=== PATIENT | female | born 1950 | race Caucasian/White ===

== ENCOUNTER 2022-06-29 11:22 | Emergency (ER) | payer SELFPAY ==
[2022-06-29] VITALS (13 sets, daily range): BP systolic 128–162; BP diastolic 69–121; PULSE 79–135; RESP 14–26; TEMP 36.1; O2SAT 96–99; BMI 17.6
[2022-06-29 12:25] LABS: Add Manual Diff / Slide Review NO; Basophils Absolute Auto 0 /uL (0-100); Basophils Percent Auto 0.4 % (0-2); Eosinophils Absolute Auto 0 /uL (0-450); Eosinophils Percent Auto 0.3 % (2-4); Hemoglobin 13.9 g/dL (12.0-16.0); Lymphocytes Absolute Auto 1500 /uL (1100-4500); Lymphocytes Percent Auto 17.1 % (25-40); Mean Corpuscular HGB Conc 33.9 % (30-36); Mean Corpuscular Hemoglobin 34.7 PG (26-34); Mean Corpuscular Volume 102.3 fL (80-100); Monocytes Absolute Auto 400 /uL (0-900); Monocytes Percent Auto 4.5 % (3-14); Neutrophils Absolute Auto 6600 /uL (1500-7000); Neutrophils Percent Auto 77.7 % (50-75); Platelet Count 318 X10^3/uL (150-400); Red Blood Cell Count 4.01 X10^6/uL (4.0-5.2); Red Cell Distribution Width 13.3 % (11.6-14.8); White Blood Cell Count 8.5 X10^3/uL (4.5-11.0)
[2022-06-29 12:26] LABS: Prothrombin Time 11.1 SECONDS (10.1-12.7)
[2022-06-29] MEDS: PANTOPRAZOLE 40 MG VIAL 80 MG IV (12:27)
[2022-06-29 12:29] LABS: PTT Partial Thromboplastin Tim 32 SECONDS (26-36)
[2022-06-29 12:30] LABS: Alanine Aminotransferase 52 IU/L (<35); Albumin 4.3 g/dL (3.5-5.0); Alkaline Phosphatase 138 U/L (38-126); Aspartate Aminotransferase 178 IU/L (14-36); BUN Creatinine Ratio 19.4 (6-22); Bilirubin Total 1.3 mg/dL (0.2-1.3); Blood Urea Nitrogen 13 mg/dL (7-17); Calcium 9.6 mg/dL (8.4-10.2); Carbon Dioxide 20 mmol/L (22-32); Chloride 98 mmol/L (98-107); Estimated Glomerular Filt Rate > 60 mL/min (>60); Globulin 4.4 g/dL (1.7-4.1); Glucose 89 mg/dL (80-110); HEMOLYSIS < 15 (0-50); Potassium 4.1 mmol/L (3.4-5.1); Sodium 137 mmol/L (137-145); Total Protein 8.7 g/dL (6.3-8.2)
--- NOTE | 2022-06-29 14:16 | ED_ITS ---
HPI - GI Bleed General Chief complaint: GI Bleed Stated complaint: woke up this morning shitting blood Time Seen by Provider: 06/29/22 12:09 Source: patient Mode of arrival: Ambulatory Limitations: no limitations History of Present Illness HPI Narrative: Patient is a 71-year-old female who states she woke up this morning and had an episode of bright red blood per rectum. She is not had any bowel movement since then. No anticoagulation. Was not tender to go the bathroom. No abdominal pain. Not vomiting. No fevers. No recent travel. No recent antibiotics. No blood in her urine. No problems urinating. Has never had a colonoscopy. Related Data Home Medications Medication Instructions Recorded Confirmed No Known Home Medications 06/29/22 06/29/22 Allergies Allergy/AdvReac Type Severity Reaction Status Date / Time amoxicillin Allergy Intermediate Hives Verified 06/29/22 11:35 bacitracin Allergy Intermediate Hives Verified 06/29/22 11:35 [From Neosporin ([id number])] neomycin Allergy Intermediate Hives Verified 06/29/22 11:35 [From Neosporin ([id number])] polymyxin B Allergy Intermediate Hives Verified 06/29/22 11:35 [From Neosporin ([id number])] silicone Allergy Intermediate Hives Verified 06/29/22 11:35 Sulfa (Sulfonamide Allergy Intermediate Hives Verified 06/29/22 11:35 Antibiotics) Review of Systems Constitutional Constitutional: Reports system reviewed and no additional complaints, except as documented Cardiovascular Cardiovascular: Reports system reviewed and no additional complaints, except as documented Respiratory Respiratory: Reports system reviewed and no additional complaints, except as documented Gastrointestinal Gastrointestinal: Reports system reviewed and no additional complaints, except as documented Genitourinary Genitourinary: Reports system reviewed and no additional complaints, except as documented Integumentary/Breasts Skin/Breast: Reports system reviewed and no additional complaints, except as documented Hematologic/Lymphatic On Anticoagulants: No Patient History Medical History Patient denies medical problems Social History Smoking Status: Current every day smoker Smoking Status: Current every day smoker alcohol intake frequency: 3 or more drinks per day Alcohol type: hard liquor Substance Use Type: marijuana Exam Initial Vital Signs Initial Vital Signs: Vital Signs Temperature 97.0 F L 06/29/22 11:28 Pulse Rate 135 H 06/29/22 11:28 Respiratory Rate 18 06/29/22 11:28 Blood Pressure 131/95 H 06/29/22 11:28 Pulse Oximetry 99 06/29/22 11:28 Oxygen Delivery Method 06/29/22 11:28 Resp Effort & Inspection: normal respiratory effort Cardio Rate: regular rate GI Inspection: normal to inspection and non-distended Palpation: soft and No tender Rectal Exam: visual inspection normal, heme positive stool, No hemorrhoids and No lesions Skin General: no rashes or lesions noted Neuro General: patient alert, patient awake and moves all extremities Extrem General: normal to inspection Course Orders Ordered: ED Orders 06/29/22 11:45 Complete Blood Count AUTO DIFF Stat Comprehensive Metabolic Panel Stat Partial Thromboplastin Time Stat Prothrombin Time INR Stat Type and Screen Stat 06/29/22 11:46 EKG-12 Lead Stat Discontinued Medications Pantoprazole Sodium (Pantoprazole 40 Mg Vial) 80 mg IV NOW ONE Stop: 06/29/22 11:36 Last Admin: 06/29/22 12:27 Dose: 80 mg Documented By: AT Vital Signs Vital signs: Vital Signs - 8 hr 06/29/22 11:28 06/29/22 11:41 06/29/22 11:45 Temperature 97.0 F L Pulse Rate 135 H 124 H Respiratory Rate 18 14 Blood Pressure 131/95 H 142/98 H Pulse Oximetry 99 99 Oxygen Delivery Method Room Air 06/29/22 11:45 06/29/22 12:00 06/29/22 12:00 Temperature Pulse Rate 119 H 101 H Respiratory Rate 26 H 15 Blood Pressure 135/89 Pulse Oximetry 97 96 Oxygen Delivery Method Room Air 06/29/22 12:15 06/29/22 12:15 06/29/22 12:30 Temperature Pulse Rate 94 H Respiratory Rate 18 Blood Pressure 141/73 H 162/121 H Pulse Oximetry 96 Oxygen Delivery Method 06/29/22 12:30 06/29/22 12:45 06/29/22 12:45 Temperature Pulse Rate 116 H 87 Respiratory Rate 18 16 Blood Pressure 136/80 Pulse Oximetry 97 97 Oxygen Delivery Method 06/29/22 13:00 06/29/22 13:00 06/29/22 13:15 Temperature Pulse Rate 83 Respiratory Rate 22 Blood Pressure 133/77 140/82 Pulse Oximetry 96 Oxygen Delivery Method 06/29/22 13:15 06/29/22 13:30 06/29/22 13:30 Temperature Pulse Rate 84 79 Respiratory Rate Blood Pressure 134/75 Pulse Oximetry 96 96 Oxygen Delivery Method Room Air Room Air 06/29/22 13:45 06/29/22 13:45 06/29/22 14:00 Temperature Pulse Rate 80 Respiratory Rate Blood Pressure 128/70 140/77 Pulse Oximetry 96 Oxygen Delivery Method Room Air 06/29/22 14:00 06/29/22 14:15 06/29/22 14:15 Temperature Pulse Rate 81 96 H Respiratory Rate Blood Pressure 134/69 Pulse Oximetry 96 98 Oxygen Delivery Method Room Air Room Air MDM - GI Bleed Lab Data Result diagrams: 06/29/22 11:45 06/29/22 11:45 Labs: Lab Results 06/29/22 06/29/22 06/29/22 Range/Units 11:45 11:45 11:45 WBC 8.5 (4.5-11.0) X10^3/uL RBC 4.01 (4.0-5.2) X10^6/uL Hgb 13.9 (12.0-16.0) g/dL Hct 41.0 (36-46) % MCV 102.3 H (80-100) fL MCH 34.7 H (26-34) PG MCHC 33.9 (30-36) % RDW 13.3 (11.6-14.8) % Plt Count 318 (150-400) X10^3/uL Neut % (Auto) 77.7 H (50-75) % Lymph % (Auto) 17.1 L (25-40) % [place] % (Auto) 4.5 (3-14) % Eos % (Auto) 0.3 L (2-4) % Baso % (Auto) 0.4 (0-2) % Neut # (Auto) 6600 (6103-5259) /uL Lymph # (Auto) 1500 (1945-1259) /uL [place] # (Auto) 400 (0-900) /uL Eos # (Auto) 0 (0-450) /uL Baso # (Auto) 0 (0-100) /uL PT 11.1 (10.1-12.7) SECONDS INR 1.0 (0.9-1.3) APTT 32 (26-36) SECONDS Sodium 137 (137-145) mmol/L Potassium 4.1 (3.4-5.1) mmol/L Chloride 98 (98-107) mmol/L Carbon Dioxide 20 L (22-32) mmol/L BUN 13 (7-17) mg/dL Creatinine 0.67 (0.52-1.04) mg/dL Estimated GFR > 60 (>60) mL/min BUN/Creatinine Ratio 19.4 (6-22) Glucose 89 (80-110) mg/dL Calcium 9.6 (8.4-10.2) mg/dL Total Bilirubin 1.3 (0.2-1.3) mg/dL AST 178 H (14-36) IU/L ALT 52 H (<35) IU/L Alkaline Phosphatase 138 H (38-126) U/L Total Protein 8.7 H (6.3-8.2) g/dL Albumin 4.3 (3.5-5.0) g/dL Globulin 4.4 H (1.7-4.1) g/dL Albumin/Globulin Ratio 1.0 (1.0-2.8) Blood Type Antibody Screen 06/29/22 Range/Units 11:45 WBC (4.5-11.0) X10^3/uL RBC (4.0-5.2) X10^6/uL Hgb (12.0-16.0) g/dL Hct (36-46) % MCV (80-100) fL MCH (26-34) PG MCHC (30-36) % RDW (11.6-14.8) % Plt Count (150-400) X10^3/uL Neut % (Auto) (50-75) % Lymph % (Auto) (25-40) % [place] % (Auto) (3-14) % Eos % (Auto) (2-4) % Baso % (Auto) (0-2) % Neut # (Auto) (8118-2941) /uL Lymph # (Auto) (7889-8562) /uL [place] # (Auto) (0-900) /uL Eos # (Auto) (0-450) /uL Baso # (Auto) (0-100) /uL PT (10.1-12.7) SECONDS INR (0.9-1.3) APTT (26-36) SECONDS Sodium (137-145) mmol/L Potassium (3.4-5.1) mmol/L Chloride (98-107) mmol/L Carbon Dioxide (22-32) mmol/L BUN (7-17) mg/dL Creatinine (0.52-1.04) mg/dL Estimated GFR (>60) mL/min BUN/Creatinine Ratio (6-22) Glucose (80-110) mg/dL Calcium (8.4-10.2) mg/dL Total Bilirubin (0.2-1.3) mg/dL AST (14-36) IU/L ALT (<35) IU/L Alkaline Phosphatase (38-126) U/L Total Protein (6.3-8.2) g/dL Albumin (3.5-5.0) g/dL Globulin (1.7-4.1) g/dL Albumin/Globulin Ratio (1.0-2.8) Blood Type O Positive Antibody Screen Negative [facility] Narrative Medical decision making narrative: Initially tachycardic upon arrival however this improved without specific intervention. Her labs are unremarkable. She is a very benign exam. No indication for antibiotics. No indication for radiologic studies today. She is never had a colonoscopy. Informed her that she should talk with her primary doctor about scheduling a colonoscopy as an outpatient. She was given strict return precautions. She expressed understanding and agreement. Discharge Plan Departure Patient Disposition: Home Clinical Impression: Bright red rectal bleeding Instructions: DI for Rectal Bleeding Activity Restrictions/Additional Instructions: I do recommend that on Saturday you contact your primary doctor for follow-up to discuss the indications for a colonoscopy. Return to the emergency department for any new symptoms. Prescriptions: No Action No Known Home Medications Referrals: Igor,MD Clif [Primary Care Provider] - Visit Report Forms: Patient Portal/API
== END 2022-06-29 14:29 | disposition home or self-care (01) ==
PROVIDERS: Emergency Provider Emergency Medicine
DX: K62.5 Hemorrhage of anus and rectum (principal)
CPT/HCPCS: 36415; 80053; 85025; 85610; 85730; 86850; 86900; 86901; 93005; 96374; 99284; C9113

== ENCOUNTER → 2025-01-08 11:49 | Outpatient (CLI) | payer MEDICARE, SELFPAY ==
--- NOTE | 2025-01-08 11:52 | DI.MG.S_ITS ---
US breast BI limited, MM diagnostic mammo BI: 01/08/2025 BI-RADS: 5 CLINICAL: 74-year old female for bilateral diagnostic mammogram and bilateral diagnostic breast ultrasound. Tyrer-Cuzick lifetime risk of 4.2%. No personal or first- degree family history of breast cancer. The patient reports a palpable abnormality (more than 2 years) in the right breast. PRIOR EXAMS No prior examinations available. MAMMOGRAPHY TECHNIQUE: 2D and 3D (tomosynthesis) digital mammographic views obtained, with additional images as needed for full coverage. Current study was also evaluated with a Computer Aided Detection (CAD) system. ULTRASOUND TECHNIQUE Left Axilla. Real-time ragland scale and color doppler imaging of the area of clinical interest was performed with image documentation. Right targeted breast ultrasound of the area of clinical interest and the axilla was performed with image documentation. Left targeted breast ultrasound of the area of clinical interest and the axilla was performed with image documentation. DENSITY D. The breasts are extremely dense, which lowers the sensitivity of mammography. MAMMOGRAPHY FINDINGS Right (finding-1): Upper at 11:30, Middle depth: Underlying surface marker and correlating with palpable lump there is an indistinct, irregular, high-density mass present with associated skin retraction, architectural distortion, and calcifications. Left: There is a focal asymmetry present with associated possible architectural distortion and calcifications. ULTRASOUND FINDINGS Right (finding-1): Upper at 12:00, 6 cm from nipple, measuring 5.3 x 5.3 x 2.3 cm: Correlating with findings on mammogram there is an irregularly shaped, hypoechoic mass showing posterior acoustic shadowing. Doppler shows internal vascularity. Right: Axillary Tail, measuring 1.9 x 1.7 x 0.9 cm with extent of 0.6 cm: There is an axillary lymph node. Doppler shows branching hilar vascularity. This lymph node is abnormal in appearance and has abnormal thickening of the cortex. Right: Upper at 12:00, Retroareolar, measuring 0.5 cm: There is a dilated duct containing echogenic material. Doppler shows no vascularity. This finding is incidental. Left (finding-2): Upper Outer Quadrant, Retroareolar, measuring 7.9 x 7.9 x 1.2 cm: Correlating with findings on mammogram there is an irregularly shaped, hypoechoic mass showing posterior acoustic shadowing. Doppler shows internal vascularity. Left: Axillary Tail, measuring 1 x 1 x 0.5 cm: There is a circumscribed, hypoechoic mass. Doppler shows rim and single vessel vascularity. This finding is incidental. This superficial, dermal versus subdermal mass may represent a skin lesion or sebaceous cyst. Left: Axillary Tail, measuring 2.1 x 1.1 x 0.7 cm with extent of 0.2 cm: There is an axillary lymph node. Doppler shows branching hilar vascularity. This axillary lymph node is normal in appearance. IMPRESSION: Right (Mass): Upper at 12:00, 6 cm from nipple, measuring 5.3 x 5.3 x 2.3 cm * Highly Suggestive of Malignancy. Right (Lymph Node): Axillary Tail, measuring 1.9 x 1.7 x 0.9 cm with extent of 0.6 cm * Suspicious findings with likelihood of malignancy. Left (Mass): Upper Outer Quadrant, Retroareolar, measuring 7.9 x 7.9 x 1.2 cm * Suspicious findings with likelihood of malignancy. Left (Mass): Axillary Tail, measuring 1 x 1 x 0.5 cm * Probably Benign. RECOMMENDATIONS Right: Upper at 12:00, 6 cm from nipple * Ultrasound-guided vacuum-assisted biopsy for further evaluation. Right: Axillary Tail * Ultrasound-guided core biopsy for further evaluation. Left: Upper Outer Quadrant, Retroareolar * Ultrasound-guided vacuum-assisted biopsy for further evaluation. Left: Axillary Tail * Six month followup with diagnostic ultrasound. COMMENTS: The above findings and recommendations were discussed with the patient by the on-site radiologist at the time of the exam. OVERALL ASSESSMENT CATEGORY BI-RADS-5: Highly Suggestive of Malignancy. ELECTRONICALLY SIGNED: Bill Beasley M.D. on 01/15/2025 at 07:49:47 AM PT Interpreting Station ID: [id number]
== END ==
LOC: MAMMO 11:51
PROVIDERS: PCP Nurse Practitioner Family; Referring Provider Nurse Practitioner Family; Visit Provider Nurse Practitioner Family
DX: R92.8 Other abnormal and inconclusive findings on diagnostic imaging of breast (principal); R92.1 Mammographic calcification found on diagnostic imaging of breast; N63.11 Unspecified lump in the right breast, upper outer quadrant; N63.32 Unspecified lump in axillary tail of the left breast; N63.21 Unspecified lump in the left breast, upper outer quadrant; R92.343 Mammographic extreme density, bilateral breasts
CPT/HCPCS: 76642; 77066; G0279